=== PATIENT | male | born 1940 | race Caucasian/White ===

== ENCOUNTER 2021-11-08 22:35 | Inpatient (IN) | payer OTHER ==
[2021-11-08] MEDS ORDERED: SODIUM CHLORIDE 1,000 ML IV SCH (23:15)
[2021-11-09 00:33] LABS: BASO % 0.4 % (0-2.0); EOS % 4.2 % (0-4.5); HEMATOCRIT 32.5 % (35.4-49); HEMOGLOBIN 10.9 GM/dL (11.7-16.9); MCH 30.2 pg (25.7-33.7); MCHC 33.7 g/dl (32.0-35.9); MEAN CELL VOLUME 89.7 fl (80-96); MONO % 10.8 % (3.8-10.2); NEUT % 49.6 % (42.8-82.8); PLATELET COUNT 172 10^3/uL (134-434); RBC 3.62 M/mm3 (4.00-5.60); RDW 14.7 % (11.9-15.9); WHITE BLOOD COUNT 6.4 K/mm3 (4.0-10.0)
[2021-11-09 00:39] LABS: INR 1.19 (0.83-1.09); PROTHROMBIN TIME (PATIENT) 13.7 SEC (9.7-13.0)
[2021-11-09 00:41] LABS: ACTIVATED PTT 33.2 SECONDS (25.2-36.5)
[2021-11-09 00:52] LABS: CALCIUM 8.2 mg/dL (8.5-10.1)
[2021-11-09 00:53] LABS: ALBUMIN 3.2 g/dl (3.4-5.0)
[2021-11-09 00:54] LABS: BLOOD UREA NITROGEN 33.6 mg/dL (7-18)
[2021-11-09 00:56] LABS: CREATININE 2.5 mg/dL (0.55-1.3)
[2021-11-09 00:58] LABS: BILIRUBIN,TOTAL 0.5 mg/dL (0.2-1); TOT PROT 6.3 g/dl (6.4-8.2)
[2021-11-09 04:17] LABS: EPI CELLS 3 /uL (0-25.1); HYALINE CASTS 0 /uL (0-3.1); PH,URINE 6.5 (5.0-8.0); URINE APPEARANCE CLEAR; URINE BACTERIA 2 /uL (0-1359); URINE BILIRUBIN NEGATIVE (NEGATIVE); URINE COLOR YELLOW; URINE GLUCOSE (UA) NEGATIVE (NEGATIVE); URINE KETONE NEGATIVE (NEGATIVE); URINE LEUK ESTERASE NEGATIVE (NEGATIVE); URINE NITRITE NEGATIVE (NEGATIVE); URINE PROTEIN 3+ (NEGATIVE); URINE RBC 18 /uL (0-23.9); URINE UROBILINOGEN 0.2 mg/dL (0.2-1.0); URINE WBC 3 /uL (0-25.8)
[2021-11-09] MEDS ORDERED: LACTATED RINGERS SOLUTION 1,000 ML/1,000 ML INFUS.BAG IV SCH ×2 (04:30→16:00)
[2021-11-09] MEDS ORDERED: MELATONIN 5 MG TABLETS PO PRN (04:41)
[2021-11-09] MEDS ORDERED: ACETAMINOPHEN 325 MG TABLET (FP) PO PRN (04:41)
[2021-11-09] MEDS ORDERED: ONDANSETRON 4 MG/2 ML VIAL IVPUSH PRN (04:41)
[2021-11-09] MEDS: INSULIN SLIDING SCALE (NOVOLOG) 1 VIAL SQ SCH ×3 (07:38→16:46)
[2021-11-09] MEDS ORDERED: APIXABAN 2.5 MG TABLET ONE (09:25)
[2021-11-09 09:45] LABS: BASO % 0.3 % (0-2.0); EOS % 3.6 % (0-4.5); HEMATOCRIT 30.6 % (35.4-49); HEMOGLOBIN 10.4 GM/dL (11.7-16.9); LYMPH % 33.6 % (8-40); MCH 30.5 pg (25.7-33.7); MCHC 34.1 g/dl (32.0-35.9); MEAN CELL VOLUME 89.5 fl (80-96); MEAN PLT VOLUME 10.1 fl (7.5-11.1); MONO % 11.8 % (3.8-10.2); NEUT % 50.7 % (42.8-82.8); PLATELET COUNT 154 10^3/uL (134-434); RBC 3.42 M/mm3 (4.00-5.60); RDW 14.5 % (11.9-15.9); WHITE BLOOD COUNT 7.5 K/mm3 (4.0-10.0)
[2021-11-09 10:09] LABS: BLOOD UREA NITROGEN 36.1 mg/dL (7-18); CALCIUM 7.9 mg/dL (8.5-10.1); MAGNESIUM 2.1 mg/dL (1.8-2.4)
[2021-11-09 10:11] LABS: BILIRUBIN,TOTAL 0.2 mg/dL (0.2-1); TOT PROT 5.8 g/dl (6.4-8.2)
[2021-11-09 10:12] LABS: IRON SERUM 56 ug/dL (50-175); PHOSPHOROUS 3.8 mg/dL (2.5-4.9); TOTAL IRON BINDING CAPACITY 225 ug/dL (250-450)
[2021-11-09 10:13] LABS: CREATININE 3.3 mg/dL (0.55-1.3)
[2021-11-09] MEDS: APIXABAN 2.5 MG TABLET PO SCH (11:32)
[2021-11-09] MEDS ORDERED: SODIUM CHLORIDE 1,000 ML IV SCH (15:58)
[2021-11-09] MEDS ORDERED: hydrALAZINE HCL 20 MG/ML VIAL IVPUSH PRN (16:27)
[2021-11-10] MEDS ORDERED: ATORVASTATIN CA 80 MG TABLET (FP) ONE (01:18)
[2021-11-10] MEDS ORDERED: APIXABAN 2.5 MG TABLET ONE (01:18)
[2021-11-10] MEDS: ATORVASTATIN CA 80 MG TABLET (FP) PO SCH ×2 (01:24→21:14)
[2021-11-10] MEDS: INSULIN SLIDING SCALE (NOVOLOG) 1 VIAL SQ SCH ×5 (01:24→21:49)
[2021-11-10] MEDS: APIXABAN 2.5 MG TABLET PO SCH ×3 (01:24→21:14)
[2021-11-10 03:56] VITALS: BMI 24.3
[2021-11-10] MEDS ORDERED: amLODIPine BESYLATE 5 MG TABLET (FP) PO ONE (11:45)
[2021-11-10] MEDS: amLODIPine BESYLATE 5 MG TABLET (FP) PO SCH (13:08)
[2021-11-10] MEDS: LABETALOL HCL 100 MG TABLET (FP) PO SCH ×2 (13:08→21:14)
[2021-11-10] MEDS ORDERED: SODIUM CHLORIDE 0.45% 1,000 ML IV SCH (14:45)
[2021-11-10 17:05] LABS: HEMATOCRIT 32.2 % (35.4-49); HEMOGLOBIN 10.2 GM/dL (11.7-16.9); MCH 28.8 pg (25.7-33.7); MCHC 31.8 g/dl (32.0-35.9); MEAN CELL VOLUME 90.7 fl (80-96); MEAN PLT VOLUME 10.1 fl (7.5-11.1); PLATELET COUNT 145 10^3/uL (134-434); RBC 3.54 M/mm3 (4.00-5.60); RDW 14.6 % (11.9-15.9); WHITE BLOOD COUNT 6.2 K/mm3 (4.0-10.0)
[2021-11-10 17:34] LABS: CALCIUM 8.1 mg/dL (8.5-10.1)
[2021-11-10 17:35] LABS: ALBUMIN 2.7 g/dl (3.4-5.0); BLOOD UREA NITROGEN 36.8 mg/dL (7-18); MAGNESIUM 1.9 mg/dL (1.8-2.4)
[2021-11-10 17:38] LABS: CREATININE 2.3 mg/dL (0.55-1.3); PHOSPHOROUS 3.5 mg/dL (2.5-4.9)
[2021-11-10 17:39] LABS: BILIRUBIN,TOTAL 0.1 mg/dL (0.2-1); TOT PROT 5.4 g/dl (6.4-8.2)
[2021-11-11] MEDS: INSULIN SLIDING SCALE (NOVOLOG) 1 VIAL SQ SCH ×3 (06:31→16:48)
[2021-11-11 08:09] LABS: CALCIUM 7.9 mg/dL (8.5-10.1)
[2021-11-11 08:10] LABS: ALBUMIN 2.6 g/dl (3.4-5.0); BLOOD UREA NITROGEN 42.2 mg/dL (7-18)
[2021-11-11 08:13] LABS: CREATININE 2.5 mg/dL (0.55-1.3)
[2021-11-11 08:14] LABS: BILIRUBIN,TOTAL 0.2 mg/dL (0.2-1)
[2021-11-11] MEDS: amLODIPine BESYLATE 5 MG TABLET (FP) PO SCH (09:16)
[2021-11-11] MEDS: APIXABAN 2.5 MG TABLET PO SCH (09:16)
[2021-11-11] MEDS: LABETALOL HCL 100 MG TABLET (FP) PO SCH (09:16)
[2021-11-11 10:56] VITALS: PULSE 51
[2021-11-11 16:07] VITALS: BP 148/70; RESP 18; TEMP 98
== END 2021-11-11 18:58 | disposition home or self-care (01) | DRG 47 ==
LOC: JER 22:35 → JERBED 11-09 03:32 → J4W 11-10 03:30
PROVIDERS: ADMIT Internal Medicine; ATTEND Internal Medicine
DX: G45.9 Transient cerebral ischemic attack, unspecified (principal); N17.9 Acute kidney failure, unspecified; G47.00 Insomnia, unspecified; E11.22 Type 2 diabetes mellitus with diabetic chronic kidney disease; R47.81 Slurred speech; R00.1 Bradycardia, unspecified; R80.9 Proteinuria, unspecified; R41.0 Disorientation, unspecified; D64.9 Anemia, unspecified; H40.9 Unspecified glaucoma; I12.9 Hypertensive chronic kidney disease with stage 1 through stage 4 chronic kidney disease, or unspecified chronic kidney disease; N18.9 Chronic kidney disease, unspecified; Z95.1 Presence of aortocoronary bypass graft; Z88.0 Allergy status to penicillin; Z86.73 Personal history of transient ischemic attack (TIA), and cerebral infarction without residual deficits
CPT/HCPCS: 36415; 70450-TC; 70551-TC; 71045-TC-FY; 73502-TC-RT-FY; 76775-TC; 80053; 80061; 81003; 82550; 82553; 82570; 82728; 82962; 83540; 83550; 83735; 84100; 84155; 84165; 84300; 84443; 84484; 85025; 85027; 85045; 85610; 85730; 86038; 87040; 87086; 93005; 93010; 93306-TC; 93880-TC; 97116-GP; 97162-GP; 99285-25; C9803-CS; U0003; U0005

== ENCOUNTER 2023-05-02 16:48 | Inpatient (IN) | payer OTHER ==
[2023-05-02 18:56] LABS: BASO % 0.3 % (0-2.0); EOS % 4.1 % (0-4.5); HEMATOCRIT 34.1 % (35.4-49); HEMOGLOBIN 11.4 GM/dL (11.7-16.9); LYMPH % 30.8 % (8-40); MCH 30.7 pg (25.7-33.7); MCHC 33.4 g/dl (32.0-35.9); MEAN PLT VOLUME 10.7 fl (7.5-11.1); MONO % 10.3 % (3.8-10.2); NEUT % 54.5 % (42.8-82.8); PLATELET COUNT 197 10^3/uL (134-434); RBC 3.71 M/mm3 (4.00-5.60); RDW 15.1 % (11.9-15.9); WHITE BLOOD COUNT 8.7 K/mm3 (4.0-10.0)
[2023-05-02] MEDS ORDERED: ACETAMINOPHEN INJECTION 100 ML IVPB ONE (19:29)
[2023-05-02] MEDS ORDERED: CLINDAMYCIN 600MG PREMIX IVPB 600 MG/50 ML BAG IVPB ONE (19:29)
[2023-05-02 19:32] LABS: CHLORIDE 110 mmol/L (98-107); POTASSIUM 5.8 mmol/L (3.5-5.1); SODIUM 137 mmol/L (136-145)
[2023-05-02 19:33] LABS: GLUCOSE,RANDOM 288 mg/dL (74-106)
[2023-05-02 19:34] LABS: ALBUMIN 3.7 g/dl (3.4-5.0); ANION GAP 6 mmol/L (4-13); BLOOD UREA NITROGEN 70.7 mg/dL (7-18); CALCIUM 9.2 mg/dL (8.5-10.1); CO2 21 mmol/L (21-32)
[2023-05-02 19:37] LABS: CREATININE 3.2 mg/dL (0.55-1.3); SGOT/AST 30 U/L (15-37); SGPT/ALT 32 U/L (13-61)
[2023-05-02] MEDS: ACETAMINOPHEN 1000 MG/100 ML BAG IVPB ONE (19:38)
[2023-05-02] MEDS: CLINDAMYCIN 600MG PREMIX IVPB 600 MG/50 ML BAG IVPB ONE (19:38)
[2023-05-02 19:39] LABS: BILIRUBIN,TOTAL 0.4 mg/dL (0.2-1); TOT PROT 7.4 g/dl (6.4-8.2)
[2023-05-02 19:40] LABS: ALK PHOS 108 U/L (45-117)
[2023-05-02 19:45] LABS: ERYTHROCYTE SEDIMENTATION RATE 25 mm/hr (0-20)
[2023-05-02] MEDS: LACTATED RINGERS SOLUTION 1000 ML INFUS.BAG IV ONE (20:11)
[2023-05-02 21:24] LABS: POTASSIUM 5.2 mmol/L (3.5-5.1)
[2023-05-02 21:26] LABS: BLOOD UREA NITROGEN 69.6 mg/dL (7-18)
[2023-05-02 21:30] LABS: CREATININE 3.2 mg/dL (0.55-1.3)
[2023-05-03] MEDS ORDERED: amLODIPine BESYLATE 10 MG TABLET (FP) PO ONE (00:14)
[2023-05-03] MEDS: amLODIPine BESYLATE 10 MG TABLET (FP) PO ONE (02:08)
[2023-05-03] MEDS ORDERED: CLINDAMYCIN HCL 150 MG CAPSULE (FP) ONE ×2 (05:33→12:48)
[2023-05-03] MEDS: CLINDAMYCIN HCL 300 MG CAPSULE PO SCH (05:59)
[2023-05-03] MEDS ORDERED: HEPARIN NA (PORCINE) 5,000 UNITS/ML 1ML VIAL SQ SCH (06:00)
[2023-05-03 07:02] LABS: BASO % 0.4 % (0-2.0); EOS % 4.6 % (0-4.5); HEMATOCRIT 34.1 % (35.4-49); LYMPH % 35.4 % (8-40); MCH 29.6 pg (25.7-33.7); MCHC 32.2 g/dl (32.0-35.9); MEAN CELL VOLUME 91.8 fl (80-96); MEAN PLT VOLUME 10.5 fl (7.5-11.1); NEUT % 48.6 % (42.8-82.8); PLATELET COUNT 177 10^3/uL (134-434); RBC 3.71 M/mm3 (4.00-5.60); RDW 14.7 % (11.9-15.9); WHITE BLOOD COUNT 8.8 K/mm3 (4.0-10.0)
[2023-05-03 07:21] LABS: POTASSIUM 4.9 mmol/L (3.5-5.1)
[2023-05-03 07:23] LABS: CALCIUM 9.1 mg/dL (8.5-10.1)
[2023-05-03 07:24] LABS: ALBUMIN 3.7 g/dl (3.4-5.0); BLOOD UREA NITROGEN 68.2 mg/dL (7-18); MAGNESIUM 2.2 mg/dL (1.8-2.4)
[2023-05-03 07:27] LABS: PHOSPHOROUS 4.6 mg/dL (2.5-4.9)
[2023-05-03 07:28] LABS: BILIRUBIN,TOTAL 0.3 mg/dL (0.2-1)
[2023-05-03] MEDS: INSULIN ASPART SLIDING SCALE (NOVOLOG) 1 VIAL SQ SCH (08:16)
[2023-05-03] MEDS: SODIUM CHLORIDE 1,000 ML IV SCH (08:17)
[2023-05-03] MEDS: LACTOBACILLUS ACIDOPHILUS 1 TABLET PO SCH (08:17)
[2023-05-03] MEDS: MULTIVITAMINS (DAILY MVI) TABLET (FP) PO SCH (08:18)
[2023-05-03] MEDS: CITALOPRAM HYDROBROMIDE 10 MG TABLET PO SCH (08:18)
[2023-05-03] MEDS: APIXABAN 2.5 MG TABLET PO SCH (08:18)
[2023-05-03] MEDS ORDERED: INSULIN (NOVOLOG) ASPART 100 UNITS/ML 10ML VIAL ONE ×2 (08:19→22:29)
[2023-05-03 15:38] VITALS: BMI 21.6
[2023-05-03] MEDS ORDERED: ACETAMINOPHEN 325 MG TABLET (FP) PO PRN (16:31)
[2023-05-03] MEDS: amLODIPine BESYLATE 5 MG TABLET (FP) PO SCH (17:39)
[2023-05-03] MEDS: amLODIPine BESYLATE 5 MG TABLET (FP) PO ONE (17:39)
[2023-05-03] MEDS: ATORVASTATIN CA 80 MG TABLET (FP) PO SCH (22:25)
[2023-05-03] MEDS: MONTELUKAST NA 10 MG TABLET PO SCH (22:25)
[2023-05-04 08:01] LABS: HEMOGLOBIN 10.2 GM/dL (11.7-16.9); MCH 30.4 pg (25.7-33.7); MCHC 33.1 g/dl (32.0-35.9); MEAN CELL VOLUME 92.1 fl (80-96); MEAN PLT VOLUME 10.4 fl (7.5-11.1); PLATELET COUNT 167 10^3/uL (134-434); RBC 3.37 M/mm3 (4.00-5.60); RDW 14.7 % (11.9-15.9); WHITE BLOOD COUNT 7.9 K/mm3 (4.0-10.0)
[2023-05-04 08:38] LABS: BLOOD UREA NITROGEN 60.7 mg/dL (7-18); CALCIUM 8.4 mg/dL (8.5-10.1)
[2023-05-04 08:39] LABS: ALBUMIN 3.2 g/dl (3.4-5.0); MAGNESIUM 2.3 mg/dL (1.8-2.4)
[2023-05-04 08:41] LABS: CREATININE 2.7 mg/dL (0.55-1.3); PHOSPHOROUS 4.1 mg/dL (2.5-4.9)
[2023-05-04 08:43] LABS: BILIRUBIN,TOTAL 0.3 mg/dL (0.2-1); TOT PROT 6.2 g/dl (6.4-8.2)
[2023-05-04] MEDS ORDERED: INSULIN (NOVOLOG) ASPART 100 UNITS/ML 10ML VIAL ONE ×2 (13:19→13:26)
[2023-05-04] MEDS: LACTATED RINGERS SOLUTION 1,000 ML/1,000 ML INFUS.BAG IV STA (14:23)
[2023-05-04 16:05] LABS: INR 1.17 (0.83-1.09); PROTHROMBIN TIME (PATIENT) 13.6 SEC (9.7-13.0)
[2023-05-04] MEDS: COLLAGENASE CLOSTRIDIUM HIST. 30 GRAMS TUBE TP SCH (16:07)
[2023-05-04] MEDS ORDERED: ONDANSETRON 4 MG/2 ML VIAL IVPUSH PRN ×2 (18:14→19:43)
[2023-05-04] MEDS ORDERED: PROMETHAZINE HCL 25 MG/1 ML VIAL IVPB PRN ×2 (18:14→19:43)
[2023-05-04] MEDS ORDERED: LACTATED RINGERS SOLUTION 1,000 ML IV SCH ×2 (18:15→19:43)
[2023-05-04] MEDS ORDERED: HEPARIN NA (PORCINE) 5,000 UNITS/ML 1ML VIAL ONE ×2 (18:26→19:06)
[2023-05-04] MEDS ORDERED: LIDOCAINE HCL 1%, 10 MG/ML (20ML VIAL) ONE (18:26)
[2023-05-04] MEDS ORDERED: LIDOCAINE HCL/PF 2% SDV 5ML VIAL ONE ×2 (18:37)
[2023-05-04] MEDS ORDERED: PROPOFOL 20 ML ONE (18:37)
[2023-05-04] MEDS ORDERED: FENTANYL CITRATE/PF 50 MCG/ML VIAL ONE (18:38)
[2023-05-04] MEDS: ceFAZolin SODIUM 1 GM VIAL IVPB ONE ×2 (18:40)
[2023-05-04] MEDS ORDERED: ceFAZolin SODIUM 1 GM VIAL ONE (18:44)
[2023-05-04] MEDS: LIDOCAINE HCL 1%, 10 MG/ML (20ML VIAL) INF ONE ×2 (18:49)
[2023-05-04] MEDS ORDERED: ACETAMINOPHEN 325 MG TABLET (FP) PO PRN (19:43)
[2023-05-04] MEDS ORDERED: hydrALAZINE HCL 20 MG/ML VIAL ONE (19:54)
[2023-05-04] MEDS: hydrALAZINE HCL 20 MG/ML VIAL IVPUSH ONE ×2 (20:08→20:54)
[2023-05-04] MEDS ORDERED: CLOPIDOGREL BISULFATE 75 MG TABLET (FP) ONE (20:52)
[2023-05-04] MEDS: CLOPIDOGREL BISULFATE 75 MG TABLET (FP) PO SCH (20:58)
[2023-05-04] MEDS: ATORVASTATIN CA 80 MG TABLET (FP) PO SCH (21:34)
[2023-05-04] MEDS: MONTELUKAST NA 10 MG TABLET PO SCH (21:34)
[2023-05-04] MEDS: INSULIN ASPART SLIDING SCALE (NOVOLOG) 1 VIAL SQ SCH (21:34)
[2023-05-05 06:26] LABS: HEMATOCRIT 30.2 % (35.4-49); MCH 30.2 pg (25.7-33.7); MEAN CELL VOLUME 91.5 fl (80-96); MEAN PLT VOLUME 10.6 fl (7.5-11.1); PLATELET COUNT 151 10^3/uL (134-434); RDW 14.4 % (11.9-15.9); WHITE BLOOD COUNT 7.8 K/mm3 (4.0-10.0)
[2023-05-05 06:58] LABS: POTASSIUM 4.9 mmol/L (3.5-5.1)
[2023-05-05 07:03] LABS: CALCIUM 8.6 mg/dL (8.5-10.1)
[2023-05-05 07:04] LABS: ALBUMIN 3.2 g/dl (3.4-5.0); BLOOD UREA NITROGEN 51.6 mg/dL (7-18)
[2023-05-05 07:07] LABS: CREATININE 2.5 mg/dL (0.55-1.3)
[2023-05-05 07:08] LABS: BILIRUBIN,TOTAL 0.4 mg/dL (0.2-1)
[2023-05-05] MEDS: amLODIPine BESYLATE 5 MG TABLET (FP) PO SCH (10:33)
[2023-05-05] MEDS: LACTOBACILLUS ACIDOPHILUS 1 TABLET PO SCH (10:33)
[2023-05-05] MEDS: CITALOPRAM HYDROBROMIDE 10 MG TABLET PO SCH (10:33)
[2023-05-05] MEDS: MULTIVITAMINS (DAILY MVI) TABLET (FP) PO SCH (10:33)
[2023-05-05] MEDS: COLLAGENASE CLOSTRIDIUM HIST. 30 GRAMS TUBE TP SCH (10:34)
[2023-05-05] MEDS ORDERED: INSULIN (NOVOLOG) ASPART 100 UNITS/ML 10ML VIAL ONE ×2 (11:03→21:16)
[2023-05-05] MEDS: CLINDAMYCIN HCL 150 MG CAPSULE (FP) PO SCH (17:05)
[2023-05-05] MEDS: APIXABAN 2.5 MG TABLET PO SCH (21:36)
[2023-05-06] MEDS: CLINDAMYCIN 600MG PREMIX IVPB 600 MG/50 ML BAG IVPB SCH (01:31)
[2023-05-06 09:32] LABS: HEMATOCRIT 28.3 % (35.4-49); HEMOGLOBIN 9.2 GM/dL (11.7-16.9); MCH 30.1 pg (25.7-33.7); MCHC 32.5 g/dl (32.0-35.9); MEAN CELL VOLUME 92.5 fl (80-96); MEAN PLT VOLUME 10.7 fl (7.5-11.1); PLATELET COUNT 155 10^3/uL (134-434); RBC 3.05 M/mm3 (4.00-5.60); RDW 14.4 % (11.9-15.9); WHITE BLOOD COUNT 7.7 K/mm3 (4.0-10.0)
[2023-05-06 09:58] LABS: POTASSIUM 4.3 mmol/L (3.5-5.1)
[2023-05-06 10:04] LABS: CALCIUM 8.4 mg/dL (8.5-10.1)
[2023-05-06 10:05] LABS: ALBUMIN 2.8 g/dl (3.4-5.0); BLOOD UREA NITROGEN 51.3 mg/dL (7-18)
[2023-05-06 10:08] LABS: CREATININE 2.6 mg/dL (0.55-1.3)
[2023-05-06 10:09] LABS: TOT PROT 5.6 g/dl (6.4-8.2)
[2023-05-06 10:10] LABS: BILIRUBIN,TOTAL 0.2 mg/dL (0.2-1)
[2023-05-07] MEDS ORDERED: INSULIN (NOVOLOG) ASPART 100 UNITS/ML 10ML VIAL ONE (05:52)
[2023-05-07 09:10] LABS: HEMATOCRIT 30.1 % (35.4-49); HEMOGLOBIN 9.9 GM/dL (11.7-16.9); MCH 30.5 pg (25.7-33.7); MCHC 32.8 g/dl (32.0-35.9); PLATELET COUNT 157 10^3/uL (134-434); RBC 3.23 M/mm3 (4.00-5.60); RDW 15.1 % (11.9-15.9); WHITE BLOOD COUNT 8.3 K/mm3 (4.0-10.0)
[2023-05-07] MEDS: EMPAGLIFLOZIN (JARDIANCE) 25 MG TABLET PO SCH (09:11)
[2023-05-07] MEDS: LOSARTAN POTASSIUM 50 MG TABLET PO SCH (09:12)
[2023-05-07] MEDS: MELATONIN 5 MG TABLETS PO PRN (22:27)
[2023-05-09] MEDS ORDERED: LIDOCAINE HCL 1%, 10 MG/ML (20ML VIAL) ONE (09:06)
[2023-05-09] MEDS ORDERED: ONDANSETRON 4 MG/2 ML VIAL IVPUSH PRN ×2 (09:38→10:34)
[2023-05-09] MEDS ORDERED: LACTATED RINGERS SOLUTION 1,000 ML IV SCH (09:45)
[2023-05-09] MEDS ORDERED: FENTANYL CITRATE/PF 50 MCG/ML VIAL ONE (09:54)
[2023-05-09] MEDS ORDERED: MIDAZOLAM HCL 2 MG/2 ML SINGLE DOSE VIAL ONE (09:54)
[2023-05-09] MEDS: LIDOCAINE HCL 1%, 10 MG/ML (20ML VIAL) INF ONE ×2 (09:58)
[2023-05-09] MEDS ORDERED: ceFAZolin SODIUM 1 GM VIAL ONE (10:11)
[2023-05-09] MEDS: ceFAZolin 2 GRAM PREMIX BAG IVPB ONE (10:13)
[2023-05-09] MEDS: INSULIN ASPART SLIDING SCALE (NOVOLOG) 1 VIAL SQ SCH (11:29)
[2023-05-09] MEDS: ACETAMINOPHEN 325 MG TABLET (FP) PO PRN (21:50)
[2023-05-09] MEDS: MONTELUKAST NA 10 MG TABLET PO SCH (21:52)
[2023-05-09] MEDS: ATORVASTATIN CA 80 MG TABLET (FP) PO SCH (21:52)
[2023-05-09] MEDS: MELATONIN 5 MG TABLETS PO PRN (21:52)
[2023-05-10] MEDS: MULTIVITAMINS (DAILY MVI) TABLET (FP) PO SCH (10:02)
[2023-05-10] MEDS: LOSARTAN POTASSIUM 50 MG TABLET PO SCH (10:03)
[2023-05-10] MEDS: CLOPIDOGREL BISULFATE 75 MG TABLET (FP) PO SCH (10:03)
[2023-05-10] MEDS: CITALOPRAM HYDROBROMIDE 10 MG TABLET PO SCH (10:06)
[2023-05-10] MEDS: LACTOBACILLUS ACIDOPHILUS 1 TABLET PO SCH (10:06)
[2023-05-10] MEDS: amLODIPine BESYLATE 5 MG TABLET (FP) PO SCH (10:06)
[2023-05-10] MEDS: EMPAGLIFLOZIN (JARDIANCE) 25 MG TABLET PO SCH (10:06)
[2023-05-10] MEDS: CEFTRIAXONE 2 GM in DEXTROSE 5%-WATER 100 ML IVPB SCH (10:06)
[2023-05-10] MEDS: ACETAMINOPHEN 1000 MG/100 ML BAG IVPB PRN (11:04)
[2023-05-10] MEDS: COLLAGENASE CLOSTRIDIUM HIST. 30 GRAMS TUBE TP SCH (12:40)
[2023-05-10] MEDS ORDERED: morphine CARPU-JECT 2 MG/1 ML DISP.SYRIN IM PRN (15:40)
[2023-05-11] MEDS: LACTATED RINGERS SOLUTION 1,000 ML IV SCH (06:42)
[2023-05-11] MEDS: DAPTOMYCIN 500 MG in SODIUM CHLORIDE 50 ML IVPB SCH (12:56)
[2023-05-12 07:50] LABS: HEMATOCRIT 25.5 % (35.4-49); HEMOGLOBIN 8.2 GM/dL (11.7-16.9); MCHC 32.3 g/dl (32.0-35.9); MEAN CELL VOLUME 92.9 fl (80-96); MEAN PLT VOLUME 10.8 fl (7.5-11.1); PLATELET COUNT 136 10^3/uL (134-434); RBC 2.74 M/mm3 (4.00-5.60); RDW 15.2 % (11.9-15.9); WHITE BLOOD COUNT 7.1 K/mm3 (4.0-10.0)
[2023-05-12 08:07] LABS: POTASSIUM 4.5 mmol/L (3.5-5.1)
[2023-05-12 08:14] LABS: CALCIUM 8.1 mg/dL (8.5-10.1)
[2023-05-12 08:15] LABS: ALBUMIN 2.5 g/dl (3.4-5.0); BLOOD UREA NITROGEN 52.6 mg/dL (7-18); MAGNESIUM 2.2 mg/dL (1.8-2.4)
[2023-05-12 08:18] LABS: CREATININE 2.2 mg/dL (0.55-1.3); PHOSPHOROUS 3.8 mg/dL (2.5-4.9)
[2023-05-12 08:19] LABS: BILIRUBIN,TOTAL 0.2 mg/dL (0.2-1); TOT PROT 5.1 g/dl (6.4-8.2)
[2023-05-12 14:16] VITALS: BP 112/56; PULSE 58; RESP 18; TEMP 98.2
== END 2023-05-12 15:31 | disposition home or self-care (01) | DRG 253 ==
LOC: JER 16:48 → JERBED 20:07 → J7W 05-03 15:14 → OBSVTOIN 05-04 09:49 → J7W 05-08 14:09
PROVIDERS: ADMIT Internal Medicine; ATTEND Internal Medicine
PROC: B40GYZZ Plain Radiography of Left Lower Extremity Arteries using Other Contrast (ICD-10-PCS; 2023-05-04)
PROC: B40DYZZ Plain Radiography of Aorta and Bilateral Lower Extremity Arteries using Other Contrast (ICD-10-PCS; 2023-05-04)
PROC: 047S3ZZ Dilation of Left Posterior Tibial Artery, Percutaneous Approach (ICD-10-PCS; principal; 2023-05-04 18:30)
PROC: 0QBR3ZX Excision of Left Toe Phalanx, Percutaneous Approach, Diagnostic (ICD-10-PCS; 2023-05-09)
PROC: 02HV33Z Insertion of Infusion Device into Superior Vena Cava, Percutaneous Approach (ICD-10-PCS; 2023-05-12)
PROC: B518ZZA Fluoroscopy of Superior Vena Cava, Guidance (ICD-10-PCS; 2023-05-12)
DX: E11.52 Type 2 diabetes mellitus with diabetic peripheral angiopathy with gangrene (principal); L97.528 Non-pressure chronic ulcer of other part of left foot with other specified severity; M86.8X7 Other osteomyelitis, ankle and foot; N17.9 Acute kidney failure, unspecified; E11.69 Type 2 diabetes mellitus with other specified complication; I12.9 Hypertensive chronic kidney disease with stage 1 through stage 4 chronic kidney disease, or unspecified chronic kidney disease; E11.22 Type 2 diabetes mellitus with diabetic chronic kidney disease; N18.9 Chronic kidney disease, unspecified; E78.5 Hyperlipidemia, unspecified; E11.621 Type 2 diabetes mellitus with foot ulcer; B95.7 Other staphylococcus as the cause of diseases classified elsewhere; M25.551 Pain in right hip; I25.10 Atherosclerotic heart disease of native coronary artery without angina pectoris; Z95.1 Presence of aortocoronary bypass graft
CPT/HCPCS: 36415; 36569; 73630-TC-LT; 73718-TC-LT; 76000-TC-FY; 80048; 80053; 82550; 82962; 83735; 84100; 85025; 85027; 85610; 85651; 86140; 86850; 86900; 86901; 87070; 87075; 87186; 87205; 93005; 93010; 93926-TC; 94760; 97116-GP; 97161-GP; 99285-25; C1725; C1760; C1897; G0378; J0131; J0878; J1644

== ENCOUNTER 2023-05-17 15:08 | Inpatient (IN) | payer OTHER ==
[2023-05-17 15:30] VITALS: BMI 22.8
[2023-05-17 19:02] LABS: BASO % 0.3 % (0-2.0); EOS % 2.9 % (0-4.5); HEMATOCRIT 30.7 % (35.4-49); HEMOGLOBIN 9.9 GM/dL (11.7-16.9); LYMPH % 30.5 % (8-40); MCH 29.9 pg (25.7-33.7); MCHC 32.1 g/dl (32.0-35.9); MONO % 9.2 % (3.8-10.2); NEUT % 57.1 % (42.8-82.8); PLATELET COUNT 175 10^3/uL (134-434); RDW 15.4 % (11.9-15.9); WHITE BLOOD COUNT 7.9 K/mm3 (4.0-10.0)
[2023-05-17 19:17] LABS: POTASSIUM 4.7 mmol/L (3.5-5.1)
[2023-05-17 19:18] LABS: CALCIUM 8.7 mg/dL (8.5-10.1)
[2023-05-17 19:24] LABS: TOT PROT 6.8 g/dl (6.4-8.2)
[2023-05-17 19:29] LABS: BILIRUBIN,TOTAL 0.3 mg/dL (0.2-1)
[2023-05-17 19:31] LABS: ALBUMIN 3.3 g/dl (3.4-5.0)
[2023-05-17] MEDS ORDERED: VANCOMYCIN 1 GRAM (PRE-DOCKED) 1,000 MG/250 ML BAG IVPB ONE (20:15)
[2023-05-17] MEDS: VANCOMYCIN 1 GM PREMIX - 1 GM/200 ML BAG IVPB ONE (20:24)
[2023-05-17] MEDS: LACTATED RINGERS SOLUTION 1000 ML INFUS.BAG IV ONE (20:25)
[2023-05-17] MEDS ORDERED: INSULIN (NOVOLOG) ASPART 100 UNITS/ML 10ML VIAL ONE (22:27)
[2023-05-17] MEDS: INSULIN ASPART SLIDING SCALE (NOVOLOG) 1 VIAL SQ SCH (22:32)
[2023-05-18] MEDS ORDERED: ACETAMINOPHEN INJECTION 100 ML IVPB ONE (00:06)
[2023-05-18] MEDS: ACETAMINOPHEN 1000 MG/100 ML BAG IVPB ONE (00:13)
[2023-05-18 08:12] LABS: BASO % 0.4 % (0-2.0); EOS % 4.5 % (0-4.5); MEAN CELL VOLUME 93.6 fl (80-96); MEAN PLT VOLUME 10.4 fl (7.5-11.1); MONO % 10.7 % (3.8-10.2); NEUT % 52.4 % (42.8-82.8); PLATELET COUNT 151 10^3/uL (134-434); WHITE BLOOD COUNT 8.1 K/mm3 (4.0-10.0)
[2023-05-18 08:15] LABS: POTASSIUM 4.2 mmol/L (3.5-5.1)
[2023-05-18 08:21] LABS: CALCIUM 8.3 mg/dL (8.5-10.1)
[2023-05-18 08:22] LABS: ALBUMIN 2.8 g/dl (3.4-5.0); BLOOD UREA NITROGEN 51.9 mg/dL (7-18); MAGNESIUM 2.4 mg/dL (1.8-2.4)
[2023-05-18 08:24] LABS: PHOSPHOROUS 4.2 mg/dL (2.5-4.9)
[2023-05-18 08:26] LABS: BILIRUBIN,TOTAL 0.3 mg/dL (0.2-1); CREATININE 2.7 mg/dL (0.55-1.3); TOT PROT 5.8 g/dl (6.4-8.2)
[2023-05-18] MEDS: APIXABAN 2.5 MG TABLET PO SCH (10:51)
[2023-05-18] MEDS: MULTIVITAMINS (DAILY MVI) TABLET (FP) PO SCH (10:52)
[2023-05-18] MEDS: CLOPIDOGREL BISULFATE 75 MG TABLET (FP) PO SCH (10:52)
[2023-05-18] MEDS: CITALOPRAM HYDROBROMIDE 10 MG TABLET PO SCH (11:40)
[2023-05-18] MEDS: amLODIPine BESYLATE 5 MG TABLET (FP) PO SCH (14:39)
[2023-05-18] MEDS: CEFTRIAXONE 2 GM in DEXTROSE 5%-WATER 100 ML IVPB SCH (14:39)
[2023-05-18] MEDS: DAPTOMYCIN 500 MG in SODIUM CHLORIDE 50 ML IVPB SCH (15:49)
[2023-05-18] MEDS ORDERED: INSULIN (NOVOLOG) ASPART 100 UNITS/ML 10ML VIAL ONE (17:11)
[2023-05-18] MEDS: MONTELUKAST NA 10 MG TABLET PO SCH (22:55)
[2023-05-19 07:12] LABS: BASO % 0.5 % (0-2.0); EOS % 5.5 % (0-4.5); HEMATOCRIT 24.9 % (35.4-49); HEMOGLOBIN 8.3 GM/dL (11.7-16.9); LYMPH % 34.7 % (8-40); MCH 30.5 pg (25.7-33.7); MCHC 33.2 g/dl (32.0-35.9); MEAN PLT VOLUME 10.4 fl (7.5-11.1); MONO % 12.1 % (3.8-10.2); NEUT % 47.2 % (42.8-82.8); PLATELET COUNT 147 10^3/uL (134-434); POTASSIUM 4.3 mmol/L (3.5-5.1); RBC 2.71 M/mm3 (4.00-5.60); RDW 14.6 % (11.9-15.9); WHITE BLOOD COUNT 6.7 K/mm3 (4.0-10.0)
[2023-05-19 07:15] LABS: BLOOD UREA NITROGEN 52.1 mg/dL (7-18)
[2023-05-19 07:20] LABS: CREATININE 2.6 mg/dL (0.55-1.3)
[2023-05-19] MEDS ORDERED: INSULIN (NOVOLOG) ASPART 100 UNITS/ML 10ML VIAL ONE (11:35)
[2023-05-20 08:56] LABS: BASO % 0.3 % (0-2.0); EOS % 4.8 % (0-4.5); HEMATOCRIT 26.8 % (35.4-49); HEMOGLOBIN 8.8 GM/dL (11.7-16.9); LYMPH % 30.4 % (8-40); MCHC 32.7 g/dl (32.0-35.9); MEAN CELL VOLUME 91.5 fl (80-96); MEAN PLT VOLUME 10.3 fl (7.5-11.1); MONO % 11.8 % (3.8-10.2); NEUT % 52.7 % (42.8-82.8); PLATELET COUNT 162 10^3/uL (134-434); RBC 2.93 M/mm3 (4.00-5.60); RDW 14.9 % (11.9-15.9)
[2023-05-20 09:06] LABS: POTASSIUM 4.5 mmol/L (3.5-5.1)
[2023-05-20 09:09] LABS: CALCIUM 8.4 mg/dL (8.5-10.1)
[2023-05-20 09:10] LABS: BLOOD UREA NITROGEN 57.1 mg/dL (7-18)
[2023-05-20 09:13] LABS: CREATININE 2.7 mg/dL (0.55-1.3)
[2023-05-20] MEDS: LACTOBACILLUS ACIDOPHILUS 1 TABLET PO SCH (11:16)
[2023-05-21 07:52] LABS: BASO % 0.4 % (0-2.0); EOS % 4.7 % (0-4.5); HEMOGLOBIN 8.3 GM/dL (11.7-16.9); LYMPH % 32.6 % (8-40); MCH 29.7 pg (25.7-33.7); MCHC 31.9 g/dl (32.0-35.9); MEAN CELL VOLUME 93.3 fl (80-96); MEAN PLT VOLUME 10.5 fl (7.5-11.1); MONO % 13.3 % (3.8-10.2); PLATELET COUNT 142 10^3/uL (134-434); RBC 2.79 M/mm3 (4.00-5.60)
[2023-05-21 08:05] LABS: POTASSIUM 4.4 mmol/L (3.5-5.1)
[2023-05-21 08:07] LABS: CALCIUM 7.8 mg/dL (8.5-10.1)
[2023-05-21 08:10] LABS: CREATININE 2.6 mg/dL (0.55-1.3)
[2023-05-21] MEDS ORDERED: ACETAMINOPHEN 325 MG TABLET (FP) PO PRN (08:50)
[2023-05-21] MEDS: ACETAMINOPHEN 325 MG TABLET (FP) PO PRN (23:07)
[2023-05-22 08:09] LABS: HEMATOCRIT 24.5 % (35.4-49); HEMOGLOBIN 8.1 GM/dL (11.7-16.9); MCH 30.5 pg (25.7-33.7); MCHC 33.1 g/dl (32.0-35.9); MEAN CELL VOLUME 91.9 fl (80-96); MEAN PLT VOLUME 10.4 fl (7.5-11.1); PLATELET COUNT 148 10^3/uL (134-434); RBC 2.67 M/mm3 (4.00-5.60); RDW 14.8 % (11.9-15.9); WHITE BLOOD COUNT 6.5 K/mm3 (4.0-10.0)
[2023-05-22 08:20] LABS: POTASSIUM 4.5 mmol/L (3.5-5.1)
[2023-05-22 08:22] LABS: BLOOD UREA NITROGEN 54.7 mg/dL (7-18); CALCIUM 7.8 mg/dL (8.5-10.1)
[2023-05-22 08:25] LABS: CREATININE 2.4 mg/dL (0.55-1.3)
[2023-05-22] MEDS ORDERED: INSULIN (NOVOLOG) ASPART 100 UNITS/ML 10ML VIAL ONE (11:08)
[2023-05-23 08:21] LABS: BASO % 0.4 % (0-2.0); EOS % 3.7 % (0-4.5); HEMATOCRIT 24.5 % (35.4-49); HEMOGLOBIN 7.9 GM/dL (11.7-16.9); LYMPH % 30.7 % (8-40); MCH 29.7 pg (25.7-33.7); MEAN CELL VOLUME 92.8 fl (80-96); MEAN PLT VOLUME 10.6 fl (7.5-11.1); MONO % 13.5 % (3.8-10.2); NEUT % 51.7 % (42.8-82.8); PLATELET COUNT 148 10^3/uL (134-434); RBC 2.65 M/mm3 (4.00-5.60); WHITE BLOOD COUNT 7.1 K/mm3 (4.0-10.0)
[2023-05-23 08:39] LABS: ALBUMIN 2.6 g/dl (3.4-5.0); BLOOD UREA NITROGEN 52.7 mg/dL (7-18); CALCIUM 7.6 mg/dL (8.5-10.1)
[2023-05-23 08:42] LABS: CREATININE 2.6 mg/dL (0.55-1.3)
[2023-05-23 08:44] LABS: BILIRUBIN,TOTAL 0.2 mg/dL (0.2-1); TOT PROT 5.3 g/dl (6.4-8.2)
[2023-05-23 12:59] VITALS: BP 156/63; PULSE 62; RESP 18; TEMP 9.1
== END 2023-05-23 15:04 | disposition home or self-care (01) | DRG 638 ==
LOC: JER 15:08 → JERBED 19:47 → J7W 05-18 04:41
PROVIDERS: ADMIT Internal Medicine; ATTEND Nurse Practitioner
DX: E11.69 Type 2 diabetes mellitus with other specified complication (principal); M86.8X7 Other osteomyelitis, ankle and foot; E78.5 Hyperlipidemia, unspecified; N17.9 Acute kidney failure, unspecified; E11.51 Type 2 diabetes mellitus with diabetic peripheral angiopathy without gangrene; I12.9 Hypertensive chronic kidney disease with stage 1 through stage 4 chronic kidney disease, or unspecified chronic kidney disease; E11.22 Type 2 diabetes mellitus with diabetic chronic kidney disease; Z79.4 Long term (current) use of insulin; I25.10 Atherosclerotic heart disease of native coronary artery without angina pectoris; N18.30 Chronic kidney disease, stage 3 unspecified
CPT/HCPCS: 36415; 73718-TC-LT; 76775-TC; 80048; 80053; 82550; 82962; 83735; 84100; 85025; 85027; 85651; 86140; 87040; 87070; 87651; 93005; 93010; 99285-25; J0131; J0878

== ENCOUNTER 2023-06-09 15:45 | Inpatient (IN) | payer OTHER ==
[2023-06-09 15:54] VITALS: BMI 23.4
[2023-06-09 17:46] LABS: BASO % 0.5 % (0-2.0); EOS % 5.8 % (0-4.5); HEMATOCRIT 30.7 % (35.4-49); HEMOGLOBIN 9.9 GM/dL (11.7-16.9); LYMPH % 24.8 % (8-40); MCH 30.4 pg (25.7-33.7); MCHC 32.4 g/dl (32.0-35.9); MEAN PLT VOLUME 9.8 fl (7.5-11.1); MONO % 10.5 % (3.8-10.2); NEUT % 58.4 % (42.8-82.8); PLATELET COUNT 185 10^3/uL (134-434); RBC 3.26 M/mm3 (4.00-5.60); RDW 15.2 % (11.9-15.9); WHITE BLOOD COUNT 8.8 K/mm3 (4.0-10.0)
[2023-06-09 17:53] LABS: INR 1.13 (0.83-1.09); PROTHROMBIN TIME (PATIENT) 12.7 SEC (9.7-13.0)
[2023-06-09 18:08] LABS: ALBUMIN 3.2 g/dl (3.4-5.0); BLOOD UREA NITROGEN 64.4 mg/dL (7-18); CALCIUM 8.8 mg/dL (8.5-10.1)
[2023-06-09 18:11] LABS: CREATININE 3.5 mg/dL (0.55-1.3)
[2023-06-09 18:13] LABS: BILIRUBIN,TOTAL 0.2 mg/dL (0.2-1); TOT PROT 7.1 g/dl (6.4-8.2)
[2023-06-09] MEDS: SODIUM CHLORIDE 0.9% 500 ML INFUS.BAG IV ONE (19:50)
[2023-06-10] MEDS: GABAPENTIN 300 MG CAPSULE PO SCH (06:46)
[2023-06-10] MEDS ORDERED: GABAPENTIN 300 MG CAPSULE ONE (06:47)
[2023-06-10 07:45] LABS: HEMATOCRIT 24.9 % (35.4-49); HEMOGLOBIN 8.1 GM/dL (11.7-16.9); MCH 30.5 pg (25.7-33.7); MCHC 32.7 g/dl (32.0-35.9); MEAN CELL VOLUME 93.5 fl (80-96); MEAN PLT VOLUME 10.5 fl (7.5-11.1); PLATELET COUNT 163 10^3/uL (134-434); RBC 2.66 M/mm3 (4.00-5.60); RDW 14.6 % (11.9-15.9); WHITE BLOOD COUNT 7.1 K/mm3 (4.0-10.0)
[2023-06-10 07:58] LABS: POTASSIUM 4.7 mmol/L (3.5-5.1)
[2023-06-10 08:06] LABS: ALBUMIN 2.8 g/dl (3.4-5.0); CALCIUM 7.8 mg/dL (8.5-10.1)
[2023-06-10 08:07] LABS: BLOOD UREA NITROGEN 59.3 mg/dL (7-18); MAGNESIUM 2.5 mg/dL (1.8-2.4)
[2023-06-10 08:10] LABS: CREATININE 3.2 mg/dL (0.55-1.3); PHOSPHOROUS 4.8 mg/dL (2.5-4.9)
[2023-06-10 08:12] LABS: BILIRUBIN,TOTAL 0.2 mg/dL (0.2-1); TOT PROT 5.7 g/dl (6.4-8.2)
[2023-06-10] MEDS ORDERED: CITALOPRAM HYDROBROMIDE 10 MG TABLET ONE (10:16)
[2023-06-10] MEDS ORDERED: APIXABAN 2.5 MG TABLET ONE (10:16)
[2023-06-10] MEDS ORDERED: amLODIPine BESYLATE 5 MG TABLET (FP) ONE (10:16)
[2023-06-10] MEDS ORDERED: ACETAMINOPHEN 325 MG TABLET (FP) ONE (10:16)
[2023-06-10] MEDS ORDERED: QUEtiapine FUMARATE 100 MG TABLET (FP) ONE (10:17)
[2023-06-10] MEDS: INSULIN ASPART SLIDING SCALE (NOVOLOG) 1 VIAL SQ SCH (10:32)
[2023-06-10] MEDS: APIXABAN 2.5 MG TABLET PO SCH (10:33)
[2023-06-10] MEDS: QUEtiapine FUMARATE 100 MG TABLET (FP) PO SCH (10:33)
[2023-06-10] MEDS: amLODIPine BESYLATE 5 MG TABLET (FP) PO SCH (10:33)
[2023-06-10] MEDS: CITALOPRAM HYDROBROMIDE 10 MG TABLET PO SCH (10:33)
[2023-06-10] MEDS: ACETAMINOPHEN 500 MG TABLET (FP) PO PRN (10:34)
[2023-06-10] MEDS: LACTATED RINGERS SOLUTION 1,000 ML/1,000 ML INFUS.BAG IV SCH (14:18)
[2023-06-10] MEDS: MONTELUKAST NA 10 MG TABLET PO SCH (21:21)
[2023-06-10] MEDS: INSULIN (LEVEMIR) 100 UNITS/ML UNITS SQ SCH (21:21)
[2023-06-11 04:07] VITALS: RESP 18
[2023-06-11 08:48] LABS: POTASSIUM 4.8 mmol/L (3.5-5.1)
[2023-06-11 08:58] LABS: BASO % 0.4 % (0-2.0); HEMATOCRIT 17.8 % (35.4-49); LYMPH % 28.7 % (8-40); MCH 30.4 pg (25.7-33.7); MCHC 32.1 g/dl (32.0-35.9); MEAN CELL VOLUME 94.6 fl (80-96); MEAN PLT VOLUME 10.1 fl (7.5-11.1); MONO % 11.9 % (3.8-10.2); PLATELET COUNT 120 10^3/uL (134-434); RBC 1.89 M/mm3 (4.00-5.60); RDW 14.5 % (11.9-15.9); WHITE BLOOD COUNT 5.5 K/mm3 (4.0-10.0)
[2023-06-11 09:03] LABS: HEMOGLOBIN 5.7 GM/dL (11.7-16.9)
[2023-06-11 09:17] LABS: CALCIUM 7.3 mg/dL (8.5-10.1)
[2023-06-11 09:20] LABS: CREATININE 2.1 mg/dL (0.55-1.3)
[2023-06-11 10:20] LABS: BASO % 0.4 % (0-2.0); EOS % 6.4 % (0-4.5); HEMATOCRIT 24.5 % (35.4-49); HEMOGLOBIN 8.1 GM/dL (11.7-16.9); LYMPH % 29.8 % (8-40); MCH 30.6 pg (25.7-33.7); MCHC 33.2 g/dl (32.0-35.9); MEAN CELL VOLUME 91.9 fl (80-96); MONO % 10.6 % (3.8-10.2); NEUT % 52.8 % (42.8-82.8); PLATELET COUNT 161 10^3/uL (134-434); RBC 2.66 M/mm3 (4.00-5.60); RDW 14.7 % (11.9-15.9); WHITE BLOOD COUNT 7.3 K/mm3 (4.0-10.0)
[2023-06-11 11:09] LABS: BLOOD UREA NITROGEN 56.4 mg/dL (7-18); CREATININE 3.2 mg/dL (0.55-1.3); POTASSIUM 4.8 mmol/L (3.5-5.1)
[2023-06-14 09:55] LABS: HEMATOCRIT 26.9 % (35.4-49); HEMOGLOBIN 8.5 GM/dL (11.7-16.9); MCH 29.9 pg (25.7-33.7); MCHC 31.7 g/dl (32.0-35.9); MEAN CELL VOLUME 94.3 fl (80-96); PLATELET COUNT 170 10^3/uL (134-434); RBC 2.86 M/mm3 (4.00-5.60); RDW 14.9 % (11.9-15.9); WHITE BLOOD COUNT 8.2 K/mm3 (4.0-10.0)
[2023-06-14 10:16] LABS: POTASSIUM 5.3 mmol/L (3.5-5.1)
[2023-06-14 10:18] LABS: CALCIUM 8.3 mg/dL (8.5-10.1)
[2023-06-14 10:19] LABS: ALBUMIN 2.7 g/dl (3.4-5.0); BLOOD UREA NITROGEN 58.7 mg/dL (7-18)
[2023-06-14 10:22] LABS: CREATININE 2.7 mg/dL (0.55-1.3)
[2023-06-14 10:23] LABS: BILIRUBIN,TOTAL 0.2 mg/dL (0.2-1); TOT PROT 5.9 g/dl (6.4-8.2)
[2023-06-14] MEDS ORDERED: SODIUM ZIRCONIUM CYCLOSILICATE (LOKELMA) 5 GM PACKET PO ONE (14:23)
[2023-06-14 14:30] VITALS: BP 129/60; PULSE 61; TEMP 97.9
[2023-06-14] MEDS: SODIUM ZIRCONIUM CYCLOSILICATE (LOKELMA) 5 GM PACKET PO ONE (15:08)
[2023-06-15] MEDS ORDERED: SODIUM ZIRCONIUM CYCLOSILICATE (LOKELMA) 5 GM PACKET PO SCH (10:00)
== END 2023-06-14 18:23 | disposition home or self-care (01) | DRG 300 ==
LOC: JER 15:45 → JERBED 19:19 → OBSVTOIN 22:28 → J6S 06-10 10:48
PROVIDERS: ADMIT Internal Medicine; ATTEND Internal Medicine
DX: E11.52 Type 2 diabetes mellitus with diabetic peripheral angiopathy with gangrene (principal); M86.8X7 Other osteomyelitis, ankle and foot; E11.621 Type 2 diabetes mellitus with foot ulcer; L97.529 Non-pressure chronic ulcer of other part of left foot with unspecified severity; I12.9 Hypertensive chronic kidney disease with stage 1 through stage 4 chronic kidney disease, or unspecified chronic kidney disease; E11.22 Type 2 diabetes mellitus with diabetic chronic kidney disease; N18.30 Chronic kidney disease, stage 3 unspecified; Z95.1 Presence of aortocoronary bypass graft; E87.5 Hyperkalemia; E11.42 Type 2 diabetes mellitus with diabetic polyneuropathy; E11.69 Type 2 diabetes mellitus with other specified complication
CPT/HCPCS: 0241U-QW; 36415; 80048; 80053; 82962; 83036; 83735; 84100; 85025; 85027; 85610; 85651; 85730; 86140; 86850; 86900; 86901; 93005; 93010; 97116-GP; 97162-GP; 99285-25; G0378

== ENCOUNTER 2023-07-14 15:09 | Inpatient (IN) | payer OTHER ==
[2023-07-14] MEDS ORDERED: VANCOMYCIN 1 GRAM (PRE-DOCKED) 1,000 MG/250 ML BAG IVPB ONE (16:21)
[2023-07-14] MEDS ORDERED: CEFEPIME 1 GM/100 ML BAG IVPB ONE (16:21)
[2023-07-14] MEDS: CEFEPIME HCL 1 GM VIAL (RESTRICTED TO ID) IVPB ONE (17:06)
[2023-07-14 17:26] LABS: BASO % 0.5 % (0-2.0); EOS % 2.3 % (0-4.5); HEMATOCRIT 31.5 % (35.4-49); HEMOGLOBIN 10.3 GM/dL (11.7-16.9); LYMPH % 21.9 % (8-40); MCH 30.5 pg (25.7-33.7); MCHC 32.8 g/dl (32.0-35.9); MEAN PLT VOLUME 10.6 fl (7.5-11.1); MONO % 7.9 % (3.8-10.2); NEUT % 67.4 % (42.8-82.8); PLATELET COUNT 188 10^3/uL (134-434); RBC 3.39 M/mm3 (4.00-5.60); RDW 14.5 % (11.9-15.9); WHITE BLOOD COUNT 12.2 K/mm3 (4.0-10.0)
[2023-07-14 17:31] LABS: INR 1.12 (0.83-1.09); PROTHROMBIN TIME (PATIENT) 12.6 SEC (9.7-13.0)
[2023-07-14 17:43] LABS: POTASSIUM 5.2 mmol/L (3.5-5.1)
[2023-07-14 17:45] LABS: ALBUMIN 3.6 g/dl (3.4-5.0); BLOOD UREA NITROGEN 75.1 mg/dL (7-18); CALCIUM 8.9 mg/dL (8.5-10.1)
[2023-07-14 17:48] LABS: CREATININE 3.7 mg/dL (0.55-1.3)
[2023-07-14 17:49] LABS: BILIRUBIN,TOTAL 0.3 mg/dL (0.2-1)
[2023-07-14 17:51] LABS: TOT PROT 7.7 g/dl (6.4-8.2)
[2023-07-14] MEDS: VANCOMYCIN 1,000 MG in DEXTROSE 5%-WATER - 250 ML IVPB ONE (18:06)
[2023-07-14] MEDS: SODIUM CHLORIDE 0.9% 500 ML INFUS.BAG IV ONE (18:08)
[2023-07-14 18:18] LABS: ERYTHROCYTE SEDIMENTATION RATE 69 mm/hr (0-20)
[2023-07-14] MEDS ORDERED: CEFEPIME HCL 1 GM VIAL (RESTRICTED TO ID) IVPB SCH ×2 (22:00)
[2023-07-14] MEDS: LACTOBACILLUS ACIDOPHILUS 1 TABLET PO SCH (22:05)
[2023-07-14] MEDS: ATORVASTATIN CA 40 MG TABLET (FP) PO SCH (22:05)
[2023-07-14] MEDS: INSULIN ASPART SLIDING SCALE (NOVOLOG) 1 VIAL SQ SCH (22:05)
[2023-07-14] MEDS: GABAPENTIN 300 MG CAPSULE PO SCH (22:05)
[2023-07-14] MEDS: APIXABAN 2.5 MG TABLET PO SCH (22:05)
[2023-07-14] MEDS: QUEtiapine FUMARATE 100 MG TABLET (FP) PO SCH (22:05)
[2023-07-14] MEDS: MEGESTROL ACETATE 20 MG TABLET PO SCH (23:13)
[2023-07-14] MEDS: CEFEPIME 1 GM in DEXTROSE 5%-WATER - 50 ML IVPB SCH (23:14)
[2023-07-15 02:42] VITALS: BMI 27.0
[2023-07-15] MEDS: VANCOMYCIN PREMIX 1.5 GM 1,500 MG/300 ML BAG IVPB SCH (05:53)
[2023-07-15] MEDS ORDERED: FUROSEMIDE 40 MG TABLET (FP) PO SCH (06:00)
[2023-07-15 07:51] LABS: HEMATOCRIT 27.3 % (35.4-49); HEMOGLOBIN 8.8 GM/dL (11.7-16.9); MCH 30.5 pg (25.7-33.7); MCHC 32.2 g/dl (32.0-35.9); MEAN CELL VOLUME 94.6 fl (80-96); MEAN PLT VOLUME 10.4 fl (7.5-11.1); PLATELET COUNT 156 10^3/uL (134-434); RBC 2.89 M/mm3 (4.00-5.60); RDW 14.2 % (11.9-15.9); WHITE BLOOD COUNT 8.1 K/mm3 (4.0-10.0)
[2023-07-15 09:01] LABS: ALBUMIN 2.7 g/dl (3.4-5.0); BILIRUBIN,TOTAL 0.3 mg/dL (0.2-1); BLOOD UREA NITROGEN 73.2 mg/dL (7-18); CALCIUM 8.2 mg/dL (8.5-10.1); CREATININE 3.7 mg/dL (0.55-1.3); POTASSIUM 4.9 mmol/L (3.5-5.1); TOT PROT 5.9 g/dl (6.4-8.2)
[2023-07-15] MEDS: MONTELUKAST NA 10 MG TABLET PO SCH (09:59)
[2023-07-15] MEDS: EMPAGLIFLOZIN (JARDIANCE) 25 MG TABLET PO SCH (09:59)
[2023-07-15] MEDS: amLODIPine BESYLATE 5 MG TABLET (FP) PO SCH (09:59)
[2023-07-15] MEDS: CITALOPRAM HYDROBROMIDE 10 MG TABLET PO SCH (10:00)
[2023-07-15] MEDS: MULTIVITAMINS (DAILY MVI) TABLET (FP) PO SCH (10:00)
[2023-07-15] MEDS: PANTOPRAZOLE 40 MG TABLET PO SCH (10:00)
[2023-07-15] MEDS: VANCOMYCIN HCL 1,500 MG in DEXTROSE 5%-WATER - 250 ML IVPB SCH (14:35)
[2023-07-15] MEDS: CEFEPIME 1 GM in DEXTROSE 5%-WATER - 50 ML IVPB SCH (14:35)
[2023-07-16] MEDS: ACETAMINOPHEN 500 MG TABLET (FP) PO ONE (04:09)
[2023-07-16 08:59] LABS: BASO % 0.6 % (0-2.0); EOS % 5.5 % (0-4.5); HEMATOCRIT 26.4 % (35.4-49); HEMOGLOBIN 8.5 GM/dL (11.7-16.9); MCH 30.3 pg (25.7-33.7); MCHC 32.4 g/dl (32.0-35.9); MEAN CELL VOLUME 93.5 fl (80-96); MEAN PLT VOLUME 10.4 fl (7.5-11.1); MONO % 9.8 % (3.8-10.2); NEUT % 54.1 % (42.8-82.8); PLATELET COUNT 157 10^3/uL (134-434); RBC 2.82 M/mm3 (4.00-5.60); RDW 14.1 % (11.9-15.9); WHITE BLOOD COUNT 8.7 K/mm3 (4.0-10.0)
[2023-07-16 09:16] LABS: POTASSIUM 4.9 mmol/L (3.5-5.1)
[2023-07-16 09:19] LABS: BLOOD UREA NITROGEN 73.3 mg/dL (7-18); CALCIUM 8.1 mg/dL (8.5-10.1)
[2023-07-16 09:23] LABS: ALBUMIN 2.8 g/dl (3.4-5.0); CREATININE 3.4 mg/dL (0.55-1.3)
[2023-07-16 09:24] LABS: BILIRUBIN,TOTAL 0.3 mg/dL (0.2-1)
[2023-07-16] MEDS: CEFEPIME 0.5 GM in DEXTROSE 5%-WATER - 50 ML IVPB SCH (10:27)
[2023-07-17 05:17] VITALS: RESP 18
[2023-07-17 09:35] LABS: HEMATOCRIT 28.3 % (35.4-49); HEMOGLOBIN 9.2 GM/dL (11.7-16.9); MCH 30.7 pg (25.7-33.7); MCHC 32.7 g/dl (32.0-35.9); MEAN PLT VOLUME 10.7 fl (7.5-11.1); PLATELET COUNT 157 10^3/uL (134-434); RBC 3.01 M/mm3 (4.00-5.60); RDW 14.5 % (11.9-15.9); WHITE BLOOD COUNT 8.1 K/mm3 (4.0-10.0)
[2023-07-17 09:41] LABS: INR 1.13 (0.83-1.09)
[2023-07-17 09:44] LABS: ACTIVATED PTT 31.7 SECONDS (25.2-36.5)
[2023-07-17 09:57] LABS: ALBUMIN 2.8 g/dl (3.4-5.0); CALCIUM 8.4 mg/dL (8.5-10.1)
[2023-07-17 09:58] LABS: BLOOD UREA NITROGEN 71.3 mg/dL (7-18)
[2023-07-17 10:00] LABS: CREATININE 3.9 mg/dL (0.55-1.3)
[2023-07-17 10:02] LABS: BILIRUBIN,TOTAL 0.1 mg/dL (0.2-1); TOT PROT 6.2 g/dl (6.4-8.2)
[2023-07-17] MEDS: SODIUM CHLORIDE 0.9% 500 ML INFUS.BAG IV ONE (14:58)
[2023-07-17] MEDS: VANCOMYCIN/WATER FOR INJ (PEG) 750 MG/150 ML BAG IVPB ONE (15:21)
[2023-07-17] MEDS: ACETAMINOPHEN 325 MG TABLET (FP) PO PRN (20:18)
[2023-07-18 08:49] LABS: POTASSIUM 5.2 mmol/L (3.5-5.1)
[2023-07-18 08:50] LABS: CALCIUM 8.4 mg/dL (8.5-10.1)
[2023-07-18 08:51] LABS: BLOOD UREA NITROGEN 73.2 mg/dL (7-18)
[2023-07-18 08:54] LABS: CREATININE 3.6 mg/dL (0.55-1.3)
[2023-07-19 10:40] LABS: POTASSIUM 5.2 mmol/L (3.5-5.1)
[2023-07-19 10:44] LABS: ALBUMIN 2.6 g/dl (3.4-5.0); BLOOD UREA NITROGEN 72.4 mg/dL (7-18); CALCIUM 8.3 mg/dL (8.5-10.1)
[2023-07-19 10:48] LABS: CREATININE 3.5 mg/dL (0.55-1.3)
[2023-07-19 10:49] LABS: BILIRUBIN,TOTAL 0.3 mg/dL (0.2-1); TOT PROT 5.7 g/dl (6.4-8.2)
[2023-07-19] MEDS: SODIUM ZIRCONIUM CYCLOSILICATE (LOKELMA) 5 GM PACKET PO SCH (13:10)
[2023-07-19] MEDS: VANCOMYCIN/WATER FOR INJ (PEG) 1,000 MG/200 ML BAG IVPB ONE (22:09)
[2023-07-20 09:10] LABS: POTASSIUM 4.9 mmol/L (3.5-5.1)
[2023-07-20 09:18] LABS: ALBUMIN 2.6 g/dl (3.4-5.0); BLOOD UREA NITROGEN 73.1 mg/dL (7-18); CALCIUM 8.4 mg/dL (8.5-10.1)
[2023-07-20 09:21] LABS: CREATININE 3.3 mg/dL (0.55-1.3)
[2023-07-20 09:23] LABS: TOT PROT 5.5 g/dl (6.4-8.2)
[2023-07-20 09:26] LABS: BILIRUBIN,TOTAL 0.4 mg/dL (0.2-1)
[2023-07-20] MEDS: CEFEPIME 0.5 GM in DEXTROSE 5%-WATER - 100 ML IVPB SCH (10:06)
[2023-07-20] MEDS ORDERED: HEPARIN NA (PORCINE) 5,000 UNITS/ML 1ML VIAL IVPUSH PRN ×2 (13:23)
[2023-07-20] MEDS ORDERED: HEPARIN - 25,000 UNIT in SODIUM CHLORIDE 495 ML IV SCH (13:30)
[2023-07-20] MEDS: HEPARIN NA (PORCINE) 5,000 UNITS/ML 1ML VIAL SQ SCH (14:23)
[2023-07-21 08:49] LABS: POTASSIUM 4.9 mmol/L (3.5-5.1)
[2023-07-21 08:55] LABS: ALBUMIN 2.5 g/dl (3.4-5.0); BLOOD UREA NITROGEN 62.4 mg/dL (7-18)
[2023-07-21 08:56] LABS: CALCIUM 8.2 mg/dL (8.5-10.1)
[2023-07-21 08:58] LABS: CREATININE 3.1 mg/dL (0.55-1.3)
[2023-07-21 08:59] LABS: BILIRUBIN,TOTAL 0.4 mg/dL (0.2-1); TOT PROT 5.5 g/dl (6.4-8.2)
[2023-07-21] MEDS: INSULIN ASPART SLIDING SCALE (NOVOLOG) 1 VIAL SQ SCH (11:56)
[2023-07-21 16:48] LABS: INR 1.04 (0.83-1.09); PROTHROMBIN TIME (PATIENT) 11.9 SEC (9.7-13.0)
[2023-07-21] MEDS: CEFEPIME 0.5 GM in DEXTROSE 5%-WATER - 100 ML IVPB SCH (18:50)
[2023-07-21] MEDS: INSULIN (LEVEMIR) 100 UNITS/ML UNITS SQ SCH (21:59)
[2023-07-22 05:11] VITALS: PULSE 62
[2023-07-22 09:06] LABS: BASO % 0.4 % (0-2.0); EOS % 4.9 % (0-4.5); HEMATOCRIT 22.9 % (35.4-49); HEMOGLOBIN 7.4 GM/dL (11.7-16.9); LYMPH % 31.7 % (8-40); MCH 30.5 pg (25.7-33.7); MCHC 32.3 g/dl (32.0-35.9); MEAN CELL VOLUME 94.6 fl (80-96); MEAN PLT VOLUME 11.1 fl (7.5-11.1); MONO % 11.5 % (3.8-10.2); NEUT % 51.5 % (42.8-82.8); PLATELET COUNT 145 10^3/uL (134-434); RBC 2.42 M/mm3 (4.00-5.60); RDW 14.2 % (11.9-15.9)
[2023-07-22 09:16] LABS: POTASSIUM 4.5 mmol/L (3.5-5.1)
[2023-07-22 09:26] LABS: CALCIUM 7.7 mg/dL (8.5-10.1)
[2023-07-22 09:27] LABS: ALBUMIN 2.3 g/dl (3.4-5.0)
[2023-07-22 09:30] LABS: BILIRUBIN,TOTAL 0.2 mg/dL (0.2-1); CREATININE 3.2 mg/dL (0.55-1.3); TOT PROT 5.4 g/dl (6.4-8.2)
[2023-07-22 11:00] VITALS: BP 140/57; TEMP 97.6
[2023-07-22] MEDS: SODIUM BICARBONATE 650 MG TABLET PO SCH (15:43)
[2023-07-22] MEDS ORDERED: INSULIN (NOVOLOG) ASPART 100 UNITS/ML 10ML VIAL SQ SCH (16:30)
== END 2023-07-22 17:59 | disposition left against medical advice (07) | DRG 300 ==
LOC: JER 15:09 → JERBED 17:53 → J6S 18:37
PROVIDERS: ATTEND Internal Medicine
PROC: 05HF33Z Insertion of Infusion Device into Left Cephalic Vein, Percutaneous Approach (ICD-10-PCS; principal; 2023-07-16)
DX: E11.52 Type 2 diabetes mellitus with diabetic peripheral angiopathy with gangrene (principal); E44.0 Moderate protein-calorie malnutrition; L03.116 Cellulitis of left lower limb; M86.9 Osteomyelitis, unspecified; N18.30 Chronic kidney disease, stage 3 unspecified; E11.51 Type 2 diabetes mellitus with diabetic peripheral angiopathy without gangrene; I12.9 Hypertensive chronic kidney disease with stage 1 through stage 4 chronic kidney disease, or unspecified chronic kidney disease; E11.621 Type 2 diabetes mellitus with foot ulcer; E11.22 Type 2 diabetes mellitus with diabetic chronic kidney disease; I25.10 Atherosclerotic heart disease of native coronary artery without angina pectoris; Z95.1 Presence of aortocoronary bypass graft; E78.5 Hyperlipidemia, unspecified; E11.42 Type 2 diabetes mellitus with diabetic polyneuropathy; E11.69 Type 2 diabetes mellitus with other specified complication; N18.9 Chronic kidney disease, unspecified; G47.00 Insomnia, unspecified
CPT/HCPCS: 36415; 73630-TC-LT; 80048; 80053; 82728; 82962; 83540; 83550; 85025; 85027; 85045; 85610; 85651; 85730; 86140; 86850; 86900; 86901; 87040; 93005; 93010; 99285-25; G0277; G0463-25; G0480; J1644; J2997; J8999